=== PATIENT | female | born 1950 | race Caucasian/White ===

== ENCOUNTER → 2016-07-28 | Outpatient (CLI) | payer BC | LOC: MOB LAB 16:42 | PROVIDERS: ATTEND Nurse Practitioner Family | DX: N89.8 Other specified noninflammatory disorders of vagina (principal) | CPT/HCPCS: 87480; 87510; 87660 ==

== ENCOUNTER → 2016-10-07 | Outpatient (CLI) | payer BC ==
--- NOTE | 2016-10-07 13:01 | DI ---
CT ABDOMEN/PELVIS W/O CONTRAST,10/07/2016 7:44 AM: Clinical History: Left lower quadrant pain. Previous Exam: November 05, 2009 Findings: Multiple helically acquired CT images are obtained through the abdomen and pelvis without contrast, a nd demonstrate mild stable dextroscoliosis of the mid lumbar spine. The lung bases are clear. The liver is unremarkable. The spleen, kidneys, adrenals and pancreas are unremarkable. Patient is st atus post cholecystectomy. Postsurgical changes are also noted within the right lower quadrant. There is moderate stool seen throughout the colon. The urinary bladder is unremarkable. Degenerative changes of the spine are seen. Impression: No acute intra-abdominal pathology.
== END ==
LOC: CT 07:23
PROVIDERS: ATTEND Nurse Practitioner Family
DX: R10.32 Left lower quadrant pain (principal); R79.0 Abnormal level of blood mineral
CPT/HCPCS: 74176; 82728